=== PATIENT | male | born 1935 | race Caucasian/White ===

== ENCOUNTER 2022-12-13 12:18 | Outpatient (REF) | payer MEDICARE, OTHER, SELFPAY ==
[2022-12-13 12:50] LABS: Alanine Aminotransferase 17 U/L (0-40); Alkaline Phosphatase 86 U/L (39-117); Aspartate Amino Transferase 17 U/L (5-37); Bilirubin Direct 0.4 mg/dL (0.0-0.5); Bilirubin Total 2.3 mg/dL (0.0-1.0); Cholesterol 98 mg/dL; HDL Cholesterol 43 mg/dL; LDL Cholesterol Calculated 44 mg/dl; Total Protein 6.5 g/dL (6.5-8.0); Triglycerides 58 mg/dL
[2022-12-13 13:29] LABS: Reflex LDLD? No
== END 2022-12-13 12:19 | disposition home or self-care (01) ==
LOC: HO.LNP 12:18
PROVIDERS: Visit Provider Internal Medicine
DX: E78.00 Pure hypercholesterolemia, unspecified (principal)
CPT/HCPCS: 80061; 80076

== ENCOUNTER 2023-03-03 09:14 | Emergency (ER) | payer MEDICARE, OTHER, SELFPAY ==
--- NOTE | ~2023-03-03 | XR_ITS ---
EXAMINATION: XR ANKLE, RIGHT CLINICAL INFORMATION: Injury COMPARISON: Previous x-ray December 1999 TECHNIQUE: AP, lateral, and mortise views of the right ankle. FINDINGS: There are 2 screws in the medial malleolus and plate and 7 screws in the distal fibular shaft. Orthopedic hardware appears intact and unchanged. Bone alignment is normal. No acute fracture or dislocation. Small osteophytes at the tibiotalar joint. The ankle mortise is otherwise normal. Small calcaneal spurs. Mild degenerative changes of the foot. Diffuse soft tissue swelling. XR/XR ankle RT min 3V IMPRESSION: Stable appearance of orthopedic hardware. No acute fracture or dislocation.
[2023-03-03 09:17] VITALS: BP 129/76; PULSE 78; RESP 18; TEMP 36.5; O2SAT 98; BMI 26.3
--- NOTE | 2023-03-03 09:42 | PC.NURSE ---
Pt reporting he got off the couch this morning, his foot was asleep and he rolled his ankle, he is concerned as he has multiple skrews/plates in this ankle from previous injury 25 years ago. Right foot noted to have slight swelling, awaiting xray results at this time
--- NOTE | 2023-03-03 09:58 | ED_ITS ---
HPI - Extremity Injury (Lower) General Chief Complaint: Extremity Injury, Lower Stated Complaint: R ankle inj Time Seen by Provider: 03/03/23 09:37 Source: patient, family and RN notes reviewed Mode of arrival: ambulatory Limitations: no limitations History of Present Illness HPI Narrative: 87-year-old male is here today for right ankle pain. Patient reports that yesterday about 02:00 o'clock in the afternoon he was getting up and as he stood up, felt like his right foot was asleep and his leg gave out. Patient felt like his ankle twisted. Reports that he had surgery over 20 years ago to this ankle where he had multiple screws and pins placed. MD complaint: ankle injury Onset (ago): day(s) Related Data Home Medications Medication Instructions Recorded Confirmed atorvastatin 40 mg tablet 40 mg PO BEDTIME 07/13/20 07/02/22 omeprazole 20 mg capsule,delayed 1 cap PO DAILY 03/08/21 07/02/22 release Osteo Bi-Flex 1 tab PO DAILY 06/13/21 07/02/22 vit C 250 mg-vit E 90 mg-zinc 40 1 tab PO BID 06/13/21 07/02/22 mg-copper 1 [id number] capsule (PreserVision AREDS-2) Previous Rx's Medication Instructions Recorded acetaminophen 500 mg tablet 1,000 mg (2 x 500 mg) PO QID PRN 08/26/21 (Tylenol Extra Strength) fever or pain #14 tabs levofloxacin 750 mg tablet 750 mg PO DAILY uti 5 days #5 tabs 08/26/21 apixaban 5 mg tablet (Eliquis) 5 mg PO BID #180 tabs 04/11/22 metoprolol succinate 25 mg 25 mg PO DAILY #90 tabs 07/06/22 tablet,extended release 24 hr acetaminophen 325 mg capsule 650 mg (2 x 325 mg) PO Q6H PRN 03/03/23 pain #20 caps Allergies Allergy/AdvReac Type Severity Reaction Status Date / Time No Known Allergies Allergy Unknown Verified 03/03/23 09:17 Review of Systems Constitutional: Constitutional: Denies weight gain and Denies weight loss ENT: Reports system reviewed and no additional complaints, except as documented Cardiovascular: Cardiovascular: Reports no additional cardiovascular complaints Respiratory: Respiratory: Reports no additional respiratory complaints Gastrointestinal: Gastrointestinal: Reports no additional gastrointestinal complaints Genitourinary: Genitourinary: Reports no additional male genitourinary complaints Musculoskeletal: Musculoskeletal: Reports arthralgias (R Ankle) Integumentary/Breasts: Skin/Breast: Reports system reviewed and no additional complaints, except as docu Neurologic: Reports system reviewed and no additional complaints, except as documented [facility] Past Medical History Medical History Arthritis Chest pain Cholelithiasis GERD (gastroesophageal reflux disease) HLD (hyperlipidemia) Low back pain Neurofibroma On anticoagulant therapy On beta [place] at home PAF (paroxysmal atrial fibrillation) Renal cyst, right Right inguinal hernia Right inguinal pain Surgical History History of ankle surgery History of esophagogastroduodenoscopy (EGD) History of right inguinal hernia repair Hx of cataract extraction Hx of eye surgery Family History Family History Mother Stroke CVD (cardiovascular disease) Father No problems noted. Social History Social History Are you a primary critical care nurse practitioner to a significant other at home: No Do you presently have visiting nurse or other home services: No Alcohol intake: never Patient Tobacco Use Status: Former Tobacco user Quit Date: many years ago Tobacco use type: Cigarette Years Smoked: 20+ Second Hand Smoke Exposure: No Advance Directives: No Advance Directives Information Provided: No Current occupational status: retired Current occupation: rt hand Physical Exam Vital Signs: Vital Signs: Last Vital Signs Temp 97.7 F 03/03/23 09:17 Pulse 78 03/03/23 09:17 Resp 18 03/03/23 09:17 BP 129/76 03/03/23 09:17 Pulse Ox 98 03/03/23 09:17 O2 Del Method Room Air 03/03/23 09:17 BMI result Body Mass Index 26.3 Const: General: healthy appearing, no acute distress and well developed Nutritional Appearance: well nourished Orientation/consciousness: patient oriented x3 HEENT: Head: Yes normal to inspection, Yes normocephalic and Yes atraumatic Face and sinus: Yes normal facial exam Mouth: Normal oral and palatal mucosa present Throat: Yes posterior oropharynx normal, Yes tonsils normal and Yes uvula midline Eyes: General: appearance normal, both eyes and all related structures Neck: Neck: Yes normal visual inspection, Yes full ROM and Yes trachea midline Thyroid: Thyroid normal Resp: Effort & Inspection: normal respiratory effort, able to speak in complete sentences, no tracheal deviation and symmetric chest movement Auscultation: clear to auscultation bilaterally Skin: General skin exam: elasticity normal, turgor normal and dry skin Neuro: General: patient oriented x3 Extrem: General: Yes normal to inspection, Yes capillary refill normal and Yes no pedal edema Right lower extremity: normal capillary refill and ankle; no cyanosis and no edema Psych: Appearance: grossly normal Mental Status: mental status grossly normal Speech and movement: Normal speech and movement present Affect: normal affect Attitude: cooperative Thought process: Normal thought process present Thought content: Normal thought content present Insight: Good insight present (Psych) Judgement: Good judgement present (Psych) Course Course Course Narrative: 87-year-old male is here today for right ankle pain. Patient reports that yesterday about 02:00 o'clock in the afternoon he was getting up and as he stood up, felt like his right foot was asleep and his leg gave out. Patient felt like his ankle twisted. Reports that he had surgery over 20 years ago to this ankle where he had multiple screws and pins placed. Patient has good pedal pulses. No visible swelling. Will review x-ray. Official report pending. Reevaluation(s) Reevaluation #1: Official report shows no acute processes. Patient will follow-up with PCP. If patient will continue have pain he can follow-up with orthopedic surgeons. Patient was instructed to elevate his foot, ice. May take Tylenol for pain Medical Decision Making Independent Interpretation I performed an independent interpretation of an: Plain X-Ray Radiology Impression Discussion of test interpretation with radiology: I have reviewed the radiologist's reading. Radiologist Impression: FINDINGS: There are 2 screws in the medial malleolus and plate and 7 screws in the distal fibular shaft. Orthopedic hardware appears intact and unchanged. Bone alignment is normal. No acute fracture or dislocation. Small osteophytes at the tibiotalar joint. The ankle mortise is otherwise normal. Small calcaneal spurs. Mild degenerative changes of the foot. Diffuse soft tissue swelling. XR/XR ankle RT min 3V IMPRESSION: Stable appearance of orthopedic hardware. No acute fracture or dislocation. Discharge Plan Discharge Clinical Impression: Ankle sprain and strain Patient Disposition: Home, Self-Care Instructions: Ankle Sprain (ED) Additional Instructions: Your right ankle has no fracture, please follow-up with your primary care doctor. You might need another x-ray if you will continue to have pain or swelling. keep your right leg elevated. Apply ice few times a day. You may take Tylenol for pain. Prescriptions: New acetaminophen 325 mg capsule 650 mg PO Q6H PRN (Reason: pain) Qty: 20 0RF No Action Eliquis 5 mg tablet 5 mg PO BID Qty: 180 3RF metoprolol succinate 25 mg tablet extended release 24 hr 25 mg PO DAILY Qty: 90 3RF omeprazole 20 mg capsule,delayed release(DR/EC) 1 cap PO DAILY PreserVision AREDS-2 250-90-40-1 mg Capsule 1 tab PO BID Osteo Bi-Flex 1 tab PO DAILY levofloxacin 750 mg tablet 750 mg PO DAILY 5 Days Qty: 5 0RF acetaminophen [Tylenol Extra Strength] 500 mg tablet 1,000 mg PO QID PRN (Reason: fever or pain) Qty: 14 0RF atorvastatin 40 mg tablet 40 mg PO BEDTIME Referrals: Sean Villar MD [Primary Care Provider] - Interventions: ED Discharge Assessment Last Done: 03/03/23 10:28 Discharge Date/Time: 03/03/23 10:29
== END 2023-03-03 10:29 | disposition home or self-care (01) ==
PROVIDERS: Emergency Provider Emergency Medicine; PCP Internal Medicine
DX: S93.401A Sprain of unspecified ligament of right ankle, initial encounter (principal); X58.XXXA Exposure to other specified factors, initial encounter; Y93.9 Activity, unspecified; Y92.9 Unspecified place or not applicable; Y99.9 Unspecified external cause status; M25.571 Pain in right ankle and joints of right foot
CPT/HCPCS: 73610; 99283; 99284

== ENCOUNTER 2023-03-11 13:50 | Outpatient (AMB) | payer MEDICARE, OTHER, SELFPAY ==
--- NOTE | 2023-03-11 14:15 | A.OFFVIS_ITS ---
Intake Vital Signs 03/11/23 14:32 Height 5 ft 9 in Weight 178 lb BMI 26.3 Intake Visit Reasons: FC-RT Ankle Sprain Intake Note: Wilder an 87 year old male presents today for an ER follow up right ankle injury, DOI 03/02/23. Patient reports when he was getting up from a sitting position not noticing his foot feel asleep his leg gave out. He presented to [facility] ED the following day due to pain and swelling. Currently he continues to have constant pain and a tingling sensation in his toes. Finds very little to no relief with Tylenol. Hx of right ankle surgery about 20 years ago. Allergies No Known Allergies Allergy (Unknown, Verified 03/11/23 14:32) HPI FC-RT Ankle Sprain HPI Details 87-year-old male who presents to the off [facility] today for evaluation of for an ER follow-up of right ankle injury s/p getting up from a sitting position without noticing his foot gave out, 03/02/23. He was seen at ED the next day for his pain and swelling. He currently states he has pain in his ankle as well as tingling sensation in his toes. He finds minimal relief with Tylenol. He has a history of right ankle surgery about 20 years ago. [facility] Medical History Arthritis Chest pain Cholelithiasis GERD (gastroesophageal reflux disease) HLD (hyperlipidemia) Low back pain Neurofibroma On anticoagulant therapy On beta [place] at home PAF (paroxysmal atrial fibrillation) Renal cyst, right Right inguinal hernia Right inguinal pain Surgical History History of esophagogastroduodenoscopy (EGD) History of right inguinal hernia repair Hx of eye surgery Hx of cataract extraction History of ankle surgery Family History Mother Stroke CVD (cardiovascular disease) Father No problems noted. Social History Are you a primary progressive care nurse to a significant other at home: No Do you presently have visiting nurse or other home services: No Alcohol intake: never Patient Tobacco Use Status: Former Tobacco user Quit Date: many years ago Tobacco use type: Cigarette Years Smoked: 20+ Second Hand Smoke Exposure: No Current occupational status: retired Current occupation: rt hand Review of Systems Const All systems reviewed & are unremarkable except as noted in HPI and below Physical Exam Vital Signs: BMI result Body Mass Index 26.3 Extrem Other: Right ankle: Normal to inspection with diffuse swelling over the medial and lateral malleolus with tenderness along the soft tissues. No discomfort along the posterior aspect of the ankle, no deformity along the Achilles tendon, negative Norman?s. No pain along the syndesmosis or anterior tibia. No laxity, NVI. Results Reviewed Results Reviewed: xrays of the right ankle obtained on 03/03/23 show intact orthopedic hardware, no evidence of new fractures. Ankle mortise intact. Assessment & Plan Assessment & Plan (1) Right ankle sprain: Code(s): S93.401A - Sprain of unspecified ligament of right ankle, initial encounter Qualifiers: Encounter type: initial encounter Involved ligament of ankle: anterior talofibular ligament Qualified Code(s): S93.491A - Sprain of other ligament of right ankle, initial encounter Plan We discussed options which include walking boot which he is familiar with and would like to defer at this time as it feels uncomfortable for him and he experiences difficult to walk in. He was fit for a lace-up ankle brace weight bearing as tolerated. I did stress the importance of elevation to allow for swelling control and also work on ankle pumps to get the circulation going. I would like to see him back in 4-6 weeks for a follow-up. Patient Instructions: Scribed for Christina Hurst PA-C, by Jorge Swartz medical equipment sales, on 03/11/2023 at 2:15 PM EST. Christina Boggs PA-C, have personally reviewed and agree with the information entered by the scribe. Coding Level of Care Code Est Pt Level 3 (08394) Diagnoses Sprain of anterior talofibular ligament of right ankle, initial encounter S93.491A Encounter type: initial encounter Involved ligament of ankle: anterior talofibular ligament
[2023-03-11 14:32] VITALS: BMI 26.3
== END 2023-03-11 15:41 | disposition home or self-care (01) ==
PROVIDERS: PCP Internal Medicine; Visit Provider Physician Assistant
DX: S93.491A Sprain of other ligament of right ankle, initial encounter (principal)
CPT/HCPCS: 99213

== ENCOUNTER → 2023-03-11 13:50 | Outpatient (BNVA) | payer MEDICARE, OTHER, SELFPAY | PROVIDERS: PCP Internal Medicine; Visit Provider Physician Assistant | DX: S93.491A Sprain of other ligament of right ankle, initial encounter (principal) | CPT/HCPCS: 99212 ==

== ENCOUNTER 2023-04-26 11:30 | Outpatient (AMB) | payer MEDICARE, OTHER, SELFPAY ==
--- NOTE | 2023-04-26 11:35 | A.OFFVIS_ITS ---
Intake Intake Visit Reasons: OV- RT Ankle Sprain Intake Note: Wilder an 87 year old male presents today for a follow up right ankle injury, DOI 03/02/23. Patient reports he is doing well, states some soreness at the lateral aspect of ankle. Allergies No Known Allergies Allergy (Unknown, Verified 04/26/23 11:39) HPI OV- RT Ankle Sprain HPI Details 87-year-old male who returns to the [facility] today for a follow-up of right ankle injury, 03/02/23. He continues to have mild soreness at the lateral aspect of his ankle but is doing well overall. [facility] Medical History Arthritis Chest pain Cholelithiasis GERD (gastroesophageal reflux disease) HLD (hyperlipidemia) Low back pain Neurofibroma On anticoagulant therapy On beta [place] at home PAF (paroxysmal atrial fibrillation) Renal cyst, right Right inguinal hernia Right inguinal pain Surgical History History of esophagogastroduodenoscopy (EGD) History of right inguinal hernia repair Hx of eye surgery Hx of cataract extraction History of ankle surgery Family History Mother Stroke CVD (cardiovascular disease) Father No problems noted. Social History Are you a primary healthcare facility administrator to a significant other at home: No Do you presently have visiting nurse or other home services: No Alcohol intake: never Patient Tobacco Use Status: Former Tobacco user Quit Date: many years ago Tobacco use type: Cigarette Years Smoked: 20+ Second Hand Smoke Exposure: No Current occupational status: retired Current occupation: rt hand Review of Systems Const All systems reviewed & are unremarkable except as noted in HPI and below Physical Exam Extrem Other: Right ankle: Normal to inspection with no swelling over the medial and lateral malleolus with no tenderness along the soft tissues. No discomfort along the posterior aspect of the ankle, no deformity along the Achilles tendon, negative Norman?s. No pain along the syndesmosis or anterior tibia. No laxity, NVI. Assessment & Plan Assessment & Plan (1) Right ankle sprain: Code(s): S93.401A - Sprain of unspecified ligament of right ankle, initial encounter Qualifiers: Encounter type: subsequent encounter Involved ligament of ankle: anterior talofibular ligament Qualified Code(s): S93.491D - Sprain of other ligament of right ankle, subsequent encounter Plan He will increase activity as tolerated. We did briefly discuss the benefits of physical therapy which he declined at this time. If symptoms persist or worsens, patient will contact the office, otherwise follow-up as needed. Patient Instructions: Scribed for Christina Hurst PA-C, by Jorge Swartz front office medical assistant, on 04/26/2023 at 12:30 PM EST. I, Christina Hurst PA-C, have personally reviewed and agree with the information entered by the scribe. Coding Level of Care Code Est Pt Level 3 (61122) Diagnoses Sprain of anterior talofibular ligament of right ankle, subsequent encounter S93.491D Encounter type: subsequent encounter Involved ligament of ankle: anterior talofibular ligament
== END 2023-04-26 12:15 | disposition home or self-care (01) ==
PROVIDERS: PCP Internal Medicine; Visit Provider Physician Assistant
DX: S93.491D Sprain of other ligament of right ankle, subsequent encounter (principal)
CPT/HCPCS: 99213

== ENCOUNTER → 2023-04-26 11:30 | Outpatient (BNVA) | payer MEDICARE, OTHER, SELFPAY | PROVIDERS: PCP Internal Medicine; Visit Provider Physician Assistant | DX: S93.491D Sprain of other ligament of right ankle, subsequent encounter (principal) | CPT/HCPCS: 99212 ==

== ENCOUNTER 2023-06-18 07:31 | Outpatient (REF) | payer MEDICARE, OTHER, SELFPAY ==
[2023-06-18 10:51] LABS: MANUAL DIFF FLAG NO
[2023-06-18 10:54] LABS: Appearance Urine Clear; Color Urine Dark Yellow; Glucose Urine UA Negative (Negative); Leukocyte Esterase Urine Small (1+) (Negative); Nitrite Urine Negative (Negative); PH 5.5 (5.0-9.0); Specific Gravity - Urine >= 1.030 (1.005-1.025); UMIC TRIGGER UACC YES; Urine Blood Negative (Negative); Urine Ketones Negative (Negative); Urine Protein Negative (Neg-Trace)
[2023-06-18 11:01] LABS: Basophils Absolute Auto 0.1 X10*3/uL (0.0-0.2); Eosinophils Absolute Auto 0.2 X10*3/uL (0.0-0.4); Eosinophils Percent Auto 4.4 % (0-4); Hematocrit 43.1 % (42.0-52.0); Hemoglobin 14.1 g/dl (14.0-18.0); Imm Gran Abs Auto 0.02 X10*3/uL (0.00-0.03); Imm Gran Pct Auto 0.4 % (0.0-0.4); Lymphocytes Percent Auto 21.1 % (20-40); Mean Corpuscular HGB Conc 32.7 g/dl (31.0-36.0); Mean Corpuscular Hemoglobin 31.8 pg (27.0-33.0); Mean Corpuscular Volume 97.1 fL (80.0-98.0); Mean Platelet Volume 10.2 fL (9.4-12.4); Monocytes Absolute Auto 0.5 X10*3/uL (0.1-1.2); Monocytes Percent Auto 11.3 % (2-11); Neutrophils Percent Auto 61.8 % (45-73); Platelet Count 156 X10*3/uL (160-400); Red Blood Count 4.44 X10*6/uL (4.60-5.80); Red Cell Distribution Width 14.6 % (11.0-16.0); White Blood Count 4.8 X10*3/uL (4.8-10.8)
[2023-06-18 11:10] LABS: Bacteria Urine None Seen (None Seen); Hyaline Casts Urine 0-2 /LPF (0-2); RBC Urine 0-2 /HPF (0-2); Squamous Epithelial Cell Urine 0-2 /HPF (0-2); UACC Culture Trigger YES; WBC Urine 0-5 /HPF (0-5)
[2023-06-18 11:15] LABS: Alanine Aminotransferase 17 U/L (0-40); Albumin Level 4.1 g/dL (3.5-5.0); Alkaline Phosphatase 104 U/L (39-117); Anion Gap 13 (12-20); Aspartate Amino Transferase 16 U/L (5-37); Blood Urea Nitrogen 22 mg/dL (9-16); Calcium 9.7 mg/dL (8.4-10.2); Carbon Dioxide 27 mmol/L (22-29); Chloride 106 mmol/L (96-108); Cholesterol 107 mg/dL (<200); Estimated Glomerular Filt Rate > 60; Glucose Fasting 92 mg/dL (60-99); HDL Cholesterol 38 mg/dL (>40); LDL Cholesterol Calculated 55 mg/dL (<100); Potassium 4.3 mmol/L (3.3-5.1); Sodium 142 mmol/L (135-145); Total Protein 6.5 g/dL (6.5-8.0); Triglycerides 74 mg/dL (<150)
[2023-06-18 11:28] LABS: PSA,Total (Free>4and<10) 0.72 ng/mL (0.00-4.00)
[2023-06-18 11:33] LABS: Vitamin D 25-OH Total 35.4 ng/mL (>30)
== END 2023-06-18 07:32 | disposition home or self-care (01) ==
LOC: HO.10HDL 07:31
PROVIDERS: Visit Provider Internal Medicine
DX: E55.9 Vitamin D deficiency, unspecified (principal); D69.6 Thrombocytopenia, unspecified; E78.00 Pure hypercholesterolemia, unspecified; Z12.5 Encounter for screening for malignant neoplasm of prostate; R82.90 Unspecified abnormal findings in urine
CPT/HCPCS: 36415; 80053; 80061; 81001; 82306; 84153; 85025; 87086

== ENCOUNTER 2023-09-25 11:52 | Outpatient (AMB) | payer MEDICARE, OTHER, SELFPAY ==
--- NOTE | 2023-09-25 12:33 | A.OFFVIS_ITS ---
Vital Signs 09/25/23 12:34 Height 5 ft 9 in Weight 173 lb 11.588 oz BMI 25.7 BP 130/70 Blood Pressure Location Lt brachial Position Sitting Pulse 77 Intake Visit Reasons: 1 yr f/up [employer] Required: No Accompanied by: Spouse Allergies No Known Allergies Allergy (Unknown, Verified 04/26/23 11:39) Medication List - Last Reconciled 09/25/23 by Alex Barnes MD acetaminophen (Tylenol Extra Strength) 1,000 mg (2 x 500 mg) PO QID PRN acetaminophen 650 mg (2 x 325 mg) PO Q6H PRN apixaban (Eliquis) 5 mg PO BID atorvastatin 40 mg PO BEDTIME metoprolol succinate ER 25 mg PO DAILY omeprazole 1 cap PO DAILY [Osteo Bi-Flex 1 tab PO DAILY] vit C,M-Ly-goplk-lutein-zeaxan 250-90-40-1 mg (PreserVision AREDS-2) 1 tab PO BID HPI Comments Details: 88-year-old gentleman here for follow-u. He went to see his primary care physician where EKG confirmed atrial fibrillation. He was started on Eliquis. He is saying he has no new symptoms. He denies shortness of breath, peripheral edema or palpitations. He previously had some dyspnea which was thought to be secondary to deconditioning. He has stress testing and ECHO in the past. He was sent for Holter monitoring which showed a good rate control Toprol XL 25 mg once a day. He also had echocardiography which showed normal biventricular function, mild biatrial enlargement and no significant valvular pathology. He returns for follow-up and is feeling good. Denies any shortness of breath. No bleeding issues. Has been taking Eliquis and metoprolol. Clinically stable at this stage. 09/25/23: He is here for follow-up. He is in atrial fibrillation with heart rate 77 beats per minute. Last EKG from 2022 also showed atrial fibrillation with good rate controlled. He is taking apixaban for anticoagulation. He gets dyspnea when he goes upstairs but otherwise on plain surface he does not have any symptoms. There is no change in his breathing status. [facility] Medical History (Updated 09/25/23 @ 12:57 by Alex Barnes MD) Right inguinal pain On beta az[place] at home On anticoagulant therapy Arthritis Low back pain Cholelithiasis Renal cyst, right Neurofibroma Right inguinal hernia GERD (gastroesophageal reflux disease) HLD (hyperlipidemia) Chest pain PAF (paroxysmal atrial fibrillation) Surgical History History of esophagogastroduodenoscopy (EGD) History of right inguinal hernia repair Hx of eye surgery Hx of cataract extraction History of ankle surgery Family History Mother Stroke CVD (cardiovascular disease) Father No problems noted. Social History Are you a primary care services manager to a significant other at home: No Do you presently have visiting nurse or other home services: No Alcohol intake: never Patient Tobacco Use Status: Former Tobacco user Quit Date: many years ago Tobacco use type: Cigarette Years Smoked: 20+ Second Hand Smoke Exposure: No Current occupational status: retired Current occupation: rt hand Review of Systems Const Denies chills, Denies fatigue, Denies fever(s), Denies frequent falls, Denies weakness, Denies weight gain and Denies weight loss ENT Denies dizziness Card Denies chest pain, Denies leg edema, Denies lightheadedness, Denies palpitations, Denies dyspnea and Denies dyspnea on exertion Resp Denies cough, Denies dyspnea and Denies dyspnea on exertion GI Denies hematochezia Musc Denies abnormal gait, Denies muscle weakness, Denies numbness, Denies radiating pain into limb and Denies tingling Neuro Denies abnormal gait, Denies dizziness, Denies frequent falls, Denies numbness, Denies tingling and Denies weakness Endo Denies fatigue and Denies palpitations Physical Exam Vital Signs: Last Vital Signs Pulse 77 09/25/23 12:34 BP 130/70 09/25/23 12:34 BMI result Body Mass Index 25.7 GENERAL APPEARANCE: in no acute distress, well developed, well nourished. NECK/THYROID: no carotid bruit, no jugular venous distention. SKIN: Neurofibromatosis. HEART: no murmurs, irregular rate and rhythm, S1, S2 normal. LUNGS: clear to auscultation bilaterally. ABDOMEN: normal, bowel sounds present, soft, nontender, nondistended. EXTREMITIES: no clubbing, cyanosis, or edema. PERIPHERAL PULSES: equal. NEUROLOGIC: nonfocal, alert and oriented. PSYCH: mood/affect full range. Assessment & Plan Assessment & Plan (1) Permanent atrial fibrillation: Code(s): I48.21 - Permanent atrial fibrillation Category: Medical Plan Pleasant 88 year gentleman who is here for follow-up. He has permanent atrial fibrillation. He is rate controlled with metoprolol succinate 25 mg daily and is on anticoagulation with apixaban. Last echocardiography was in 2020. Given the fact that he is in AFib all the time, I think we should repeat echocardiography to reassess ejection fraction as cardiomyopathy can develop in some patients due to poor rate control. Overall clinically stable. He will see us back in 1 year. Thank you for allowing me to participate in the care of your patient. Please feel free to contact me if you have any questions. Orders: Orders CA echo transthoracic complete Today I48.21 - Permanent atrial fibrillation Coding Level of Care Code Est Pt Level 4 (63235) Diagnoses Permanent atrial fibrillation I48.21
[2023-09-25 12:34] VITALS: BP 130/70; PULSE 77; BMI 25.7
== END 2023-09-25 12:59 | disposition home or self-care (01) ==
PROVIDERS: PCP Internal Medicine; Visit Provider Internal Medicine Cardiovascular Disease
DX: I48.21 Permanent atrial fibrillation (principal)
CPT/HCPCS: 93010; 99214

== ENCOUNTER → 2023-09-25 11:52 | Outpatient (BNVA) | payer MEDICARE, OTHER, SELFPAY | PROVIDERS: PCP Internal Medicine; Visit Provider Internal Medicine Cardiovascular Disease | DX: I48.21 Permanent atrial fibrillation (principal) | CPT/HCPCS: 93005; 99212 ==

== ENCOUNTER → 2023-10-17 09:33 | Outpatient (REF) | payer MEDICARE, OTHER, SELFPAY ==
--- NOTE | 2023-10-17 09:36 | CA_ITS ---
Transthoracic Echocardiogram Patient (Last, First, Middle): Wilder Ziegler H Gender: Male Date of : 1935 Age: 88 Procedure Date: 10/17/2023 Procedure Type: Transthoracic Echocardiogram Location: OP Height: 175.26 cm Weight: 80.74 kg BSA: 1.97 m2 Heart Rate: 59 bpm BP: 110 / 70 mmHg Varnish Inspector: JOSEPHINE Hoffman MD: Alex Barnes MD Furnace Mechanic: Alex Barnes MD Symptoms: I48.21 - Permanent atrial fibrillation Study Quality: Adequate ECG Rhythm: Atrial Fibrillation Conclusions: - Normal left ventricular size and systolic function. There is moderately increased left ventricular wall thickness. The visually estimated ejection fraction is between 55-60%. - Mildly increased right ventricular cavity size. There is mild to moderately decreased right ventricular systolic function. - There is moderate to severe tricuspid valve regurgitation. Moderately elevated right atrial pressure. There is no evidence of pulmonary hypertension. Findings Left Ventricle Normal left ventricular size and systolic function. There is moderately increased left ventricular wall thickness. The visually estimated ejection fraction is between 55-60%. There is no evidence of regional wall motion abnormalities. Diastolic function is indeterminate on the basis of available data. Right Ventricle Mildly increased right ventricular cavity size. There is mild to moderately decreased right ventricular systolic function. Atria The left atrium is severely dilated. The right atrium is severely dilated. Aortic Valve Normal aortic valve structure and function. There is no aortic valve stenosis. There is trace (trivial) aortic valve regurgitation. Mitral Valve Normal mitral valve structure and function. There is trace mitral valve regurgitation. There is no mitral valve stenosis. Pulmonic Valve Normal pulmonic valve structure and function. There is trace pulmonic valve regurgitation. Tricuspid Valve Normal tricuspid valve structure. There is moderate to severe tricuspid valve regurgitation. Moderately elevated right atrial pressure. There is no evidence of pulmonary hypertension. Venous The inferior vena cava is dilated and collapses greater than 50% with inspiration. Pericardium/Pleural There is no evidence of pericardial effusion. Prior Study Comparison Changes noted compared to prior study dated: 08/23/2020. Severe biatrial enlargement. Mild to mod RV dysfunction. Mod to severe TR. Measurements 2D Linear Measurements IVSd: 1.44 0.6-0.9/0.6-1.0 cm LVIDd: 4.26 3.9-5.3/4.2-5.9 cm LVIDd Index: 2.16 2.4-3.2/2.2-3.1 cm/m2 LVIDs: 3.18 2.0-3.6 cm LVPWd: 1.29 0.7-1.1 cm LA Diam: 4.70 2.7-3.8/3.0-4.0 cm LAIDs Index: 2.39 1.5-2.3 cm/m2 LV Mass: 274.79 67-162/88-224 g LV Mass Index: 139.49 43-95/49-115 g/m2 LVOT Diam: 2.30 3.0+(-)1.3 cm 2D Systolic Function EF 4C: 59.80 >55% EF 2C: 52.40 >55% EF BiP: 56.00 >55% Mitral Valve MV Pk E: 0.79 MV Decel Time: 188.00 E'Lateral: 10.80 E'Medial: 8.49 E/E' Med: 9.30 E/E' Lat: 7.30 PHT: 55.00 MVA PHT: 4.00 Decel [place]: 4.21 Aortic Valve AoV Pk [place]: 1.06 AoV Mn [place]: 0.77 AoV VTI: 0.21 AoV Pk Grad: 4.00 Aov Mn Grad: 3.00 G[place] Cont.VTI: 2.23 LVOT LVOT Pk [place]: 0.57 LVOT Mn [place]: 0.42 LVOT VTI: 0.11 LVOT Pk Grad: 1.00 LVOT Mn Grad: 1.00 LVOT Diam: 2.30 LVOT Area: 4.15 Diastolic Function MV Pk E: 0.79 E'Medial: 8.49 E/E' Med: 9.30 E' Laterial: 10.80 E/E' Lat: 7.30 Right Ventricle TAPSE (mm): 14.90 TVS' [place]: 8.56 Tricuspid Valve TR Pk [place]: 2.41 TR Pk Grad: 23.00 RA Press: 8.00 RVSP: 31.00 Great Vessels Aorta Sinus of Valsalva: 4.00 2.0-3.5 cm Ao Asc: 3.70 2.1-3.4 cm Pulmonary Valve PV Pk [place]: 0.84 Peak PV Grad: 3.00 Updated in Other Vendor System with Status of Final Alex Barnes MD electronically signed on 10/17/2023 6:05:42 PM with status of Final
== END ==
LOC: HO.CARD 09:33
PROVIDERS: PCP Internal Medicine; Visit Provider Internal Medicine Cardiovascular Disease
DX: I48.21 Permanent atrial fibrillation (principal)
CPT/HCPCS: 93306

== ENCOUNTER → 2023-10-17 09:36 | Outpatient (BNV) | payer MEDICARE, OTHER, SELFPAY | PROVIDERS: PCP Internal Medicine; Visit Provider Internal Medicine Cardiovascular Disease | DX: I36.1 Nonrheumatic tricuspid (valve) insufficiency (principal) | CPT/HCPCS: 93306 ==

== ENCOUNTER 2023-12-02 12:18 | Outpatient (AMB) | payer MEDICARE, OTHER, SELFPAY ==
[2023-12-02 12:44] VITALS: BP 120/62; PULSE 67; BMI 25.2
--- NOTE | 2023-12-02 12:44 | MHC.OFFVIS ---
Vital Signs 12/02/23 12:44 Height 5 ft 9 in Weight 170 lb 10.205 oz BMI 25.2 BP 120/62 Blood Pressure Location Rt brachial Position Sitting Pulse 67 Pulse Source Pulse Oximeter Intake Visit Reasons: f/up echo/plan Intake Note: f/up echo Dictating Machine Mechanic Required: No Accompanied by: Self / Same As Patient Allergies No Known Allergies Allergy (Unknown, Verified 04/26/23 11:39) Medication List - Last Reconciled 12/02/23 by Alex Barnes MD acetaminophen (Tylenol Extra Strength) 1,000 mg (2 x 500 mg) PO QID PRN acetaminophen 650 mg (2 x 325 mg) PO Q6H PRN apixaban (Eliquis) 5 mg PO BID atorvastatin 40 mg PO BEDTIME metoprolol succinate ER 25 mg PO DAILY omeprazole 1 cap PO DAILY [Osteo Bi-Flex 1 tab PO DAILY] vit C,T-Jk-kavix-lutein-zeaxan 250-90-40-1 mg (PreserVision AREDS-2) 1 tab PO BID HPI Comments Details: 88-year-old gentleman here for follow-u. He went to see his primary care physician where EKG confirmed atrial fibrillation. He was started on Eliquis. He is saying he has no new symptoms. He denies shortness of breath, peripheral edema or palpitations. He previously had some dyspnea which was thought to be secondary to deconditioning. He has stress testing and ECHO in the past. He was sent for Holter monitoring which showed a good rate control Toprol XL 25 mg once a day. He also had echocardiography which showed normal biventricular function, mild biatrial enlargement and no significant valvular pathology. He returns for follow-up and is feeling good. Denies any shortness of breath. No bleeding issues. Has been taking Eliquis and metoprolol. Clinically stable at this stage. 09/25/23: He is here for follow-up. He is in atrial fibrillation with heart rate 77 beats per minute. Last EKG from 2022 also showed atrial fibrillation with good rate controlled. He is taking apixaban for anticoagulation. He gets dyspnea when he goes upstairs but otherwise on plain surface he does not have any symptoms. There is no change in his breathing status. 12/02/2023: He returns for follow-up. He underwent echocardiography in 10/17/2023 which showed normal LV function of 55-60%, mildly increased right ventricular cavity size with uwfl-jf-otqdlxil RV dysfunction, moderate severe tricuspid valve regurgitation and a moderately elevated right atrial pressure. Normal PA pressures were noted. Severe biatrial enlargement was noted. He is denying any significant change in his symptoms on follow-up. No chest discomfort. No peripheral edema or abdominal distention/signs of right heart failure. [facility] Medical History (Updated 12/02/23 @ 13:23 by Alex Barnes MD) Right inguinal pain On beta azalia at home On anticoagulant therapy Arthritis Low back pain Cholelithiasis Renal cyst, right Neurofibroma Right inguinal hernia GERD (gastroesophageal reflux disease) HLD (hyperlipidemia) Chest pain PAF (paroxysmal atrial fibrillation) Surgical History History of esophagogastroduodenoscopy (EGD) History of right inguinal hernia repair Hx of eye surgery Hx of cataract extraction History of ankle surgery Family History Mother Stroke CVD (cardiovascular disease) Father No problems noted. Social History Are you a primary adult live in caregiver to a significant other at home: No Do you presently have visiting nurse or other home services: No Alcohol intake: never Patient Tobacco Use Status: Former Tobacco user Tobacco use type: Cigarette Years Smoked: 20+ Second Hand Smoke Exposure: No Current occupational status: retired Current occupation: rt hand Review of Systems Const Denies chills, Denies fatigue, Denies fever(s), Denies frequent falls, Denies weakness, Denies weight gain and Denies weight loss ENT Denies dizziness Card Denies chest pain, Denies leg edema, Denies lightheadedness, Denies palpitations, Denies dyspnea and Denies dyspnea on exertion Resp Denies cough, Denies dyspnea and Denies dyspnea on exertion GI Denies hematochezia Musc Denies abnormal gait, Denies muscle weakness, Denies numbness, Denies radiating pain into limb and Denies tingling Neuro Denies abnormal gait, Denies dizziness, Denies frequent falls, Denies numbness, Denies tingling and Denies weakness Endo Denies fatigue and Denies palpitations Physical Exam Vital Signs: Last Vital Signs Pulse 67 12/02/23 12:44 BP 120/62 12/02/23 12:44 BMI result Body Mass Index 25.2 GENERAL APPEARANCE: in no acute distress, well developed, well nourished. NECK/THYROID: no carotid bruit, no jugular venous distention. SKIN: Neurofibroma. HEART: no murmurs, irregular rate and rhythm, S1, S2 normal. LUNGS: clear to auscultation bilaterally. ABDOMEN: normal, bowel sounds present, soft, nontender, nondistended. EXTREMITIES: no clubbing, cyanosis, or edema. PERIPHERAL PULSES: equal. NEUROLOGIC: nonfocal, alert and oriented. PSYCH: mood/affect full range. Assessment & Plan Assessment & Plan (1) Permanent atrial fibrillation: Code(s): I48.21 - Permanent atrial fibrillation Category: Medical (2) Right ventricular dysfunction: Code(s): I51.9 - Heart disease, unspecified Category: Medical Plan 88-year-old gentleman presenting for follow-up. He has known history of atrial fibrillation was previously treated as permanent atrial fibrillation because he had no symptoms. He underwent echocardiography recently which interestingly is showing eatk-rh-nduheevc RV dysfunction with oxivbrzf-hj-rtxirw tricuspid valve regurgitation. Right atrial pressure is severely elevated and no pulmonary hypertension was noted. He has severe biatrial enlargement which can be seen with amyloid in this age group but progressive tricuspid regurgitation due to dilation of atrial due to atrial fibrillation could be another etiology. He currently has no significant symptoms other than some fatigue and shortness of breath with activities which has been a chronic issue for him. Clinically not in heart failure. I have discussed with him that cardioversion can be attempted to see if we achieve sinus rhythm and maybe we could prevent further atrial dilatation and TR. I have explained to him that this is fairly theoretical currently. He wishes to discuss this with his family. We will bring him back in couple of months for follow-up. He will discuss with his family and if he made up his mind about cardioversion then he will reach out to us. I am stopping the metoprolol succinate and changing him to amiodarone 200 mg daily. In case he decides to go for cardioversion this will increase our success rate because he has been in AFib for long time. Thank you for allowing me to participate in the care of your patient. Please feel free to contact me if you have any questions. Medications: New amiodarone 200 mg PO DAILY 90 tabs 3RF Discontinued metoprolol succinate ER Discontinued Reason: Doctor's Order 25 mg PO DAILY 90 tabs 3RF I48.0 - Paroxysmal atrial fibrillation Coding Level of Care Code Est Pt Level 4 (78645) Diagnoses Permanent atrial fibrillation I48.21 Right ventricular dysfunction I51.9
== END 2023-12-02 13:14 | disposition home or self-care (01) ==
PROVIDERS: PCP Internal Medicine; Visit Provider Internal Medicine Cardiovascular Disease
DX: I48.21 Permanent atrial fibrillation (principal); I51.9 Heart disease, unspecified
CPT/HCPCS: 99214

== ENCOUNTER → 2023-12-02 12:18 | Outpatient (BNVA) | payer MEDICARE, OTHER, SELFPAY | PROVIDERS: PCP Internal Medicine; Visit Provider Internal Medicine Cardiovascular Disease | DX: I48.21 Permanent atrial fibrillation (principal); I48.0 Paroxysmal atrial fibrillation; I51.9 Heart disease, unspecified; Z79.01 Long term (current) use of anticoagulants; Z79.899 Other long term (current) drug therapy | CPT/HCPCS: 99212 ==

== ENCOUNTER 2023-12-16 10:36 | Outpatient (REF) | payer MEDICARE, OTHER, SELFPAY ==
[2023-12-16 11:16] LABS: Alanine Aminotransferase 14 U/L (0-40); Alkaline Phosphatase 91 U/L (39-117); Aspartate Amino Transferase 15 U/L (5-37); Bilirubin Direct 0.5 mg/dL (0.0-0.5); Bilirubin Total 2.3 mg/dL (0.0-1.0); Cholesterol 99 mg/dL (<200); HDL Cholesterol 48 mg/dL (>40); LDL Cholesterol Calculated 37 mg/dL (<100); Total Protein 6.3 g/dL (6.5-8.0); Triglycerides 72 mg/dL (<150)
== END 2023-12-16 10:37 | disposition home or self-care (01) ==
LOC: HO.LNP 10:36
PROVIDERS: Visit Provider Internal Medicine
DX: I48.91 Unspecified atrial fibrillation (principal)
CPT/HCPCS: 80061; 80076

== ENCOUNTER 2024-02-12 12:14 | Outpatient (AMB) | payer MEDICARE, OTHER, SELFPAY ==
[2024-02-12 12:45] VITALS: BP 130/60; PULSE 74; BMI 25.0
--- NOTE | 2024-02-12 12:45 | MHC.OFFVIS ---
Vital Signs 02/12/24 12:45 Height 5 ft 9 in Weight 169 lb 5.04 oz BMI 25.0 BP 130/60 Blood Pressure Location Lt brachial Position Sitting Pulse 74 Pulse Source Monitor Intake Visit Reasons: 2 mth f/up Intake Note: 2 mth f/up Quality Assurance Qa Lab Analyst Required: No Accompanied by: Spouse Allergies No Known Allergies Allergy (Unknown, Verified 04/26/23 11:39) Medication List - Last Reconciled 02/12/24 by Alex Barnes MD acetaminophen (Tylenol Extra Strength) 1,000 mg (2 x 500 mg) PO QID PRN acetaminophen 650 mg (2 x 325 mg) PO Q6H PRN amiodarone 200 mg PO DAILY apixaban (Eliquis) 5 mg PO BID atorvastatin 40 mg PO BEDTIME omeprazole 1 cap PO DAILY [Osteo Bi-Flex 1 tab PO DAILY] tamsulosin 0.8 mg PO DAILY vit C,L-Wo-hhayl-lutein-zeaxan 250-90-40-1 mg (PreserVision AREDS-2) 1 tab PO BID HPI Comments Details: 88-year-old gentleman here for follow-u. He went to see his primary care physician where EKG confirmed atrial fibrillation. He was started on Eliquis. He is saying he has no new symptoms. He denies shortness of breath, peripheral edema or palpitations. He previously had some dyspnea which was thought to be secondary to deconditioning. He has stress testing and ECHO in the past. He was sent for Holter monitoring which showed a good rate control Toprol XL 25 mg once a day. He also had echocardiography which showed normal biventricular function, mild biatrial enlargement and no significant valvular pathology. He returns for follow-up and is feeling good. Denies any shortness of breath. No bleeding issues. Has been taking Eliquis and metoprolol. Clinically stable at this stage. 09/25/23: He is here for follow-up. He is in atrial fibrillation with heart rate 77 beats per minute. Last EKG from 2022 also showed atrial fibrillation with good rate controlled. He is taking apixaban for anticoagulation. He gets dyspnea when he goes upstairs but otherwise on plain surface he does not have any symptoms. There is no change in his breathing status. 12/02/2023: He returns for follow-up. He underwent echocardiography in 10/17/2023 which showed normal LV function of 55-60%, mildly increased right ventricular cavity size with xaju-tz-lfnzpjsd RV dysfunction, moderate severe tricuspid valve regurgitation and a moderately elevated right atrial pressure. Normal PA pressures were noted. Severe biatrial enlargement was noted. He is denying any significant change in his symptoms on follow-up. No chest discomfort. No peripheral edema or abdominal distention/signs of right heart failure. 02/12/2024: He is here for follow-up. He was started on amiodarone 200 mg daily on last visit. We discussed about cardioversion on last visit any wanted to discuss this with his family. Returns any saying that he does not want to undergo cardioversion. Heart rate is well controlled on amiodarone and he is on apixaban for anticoagulation. Clinically does not have any symptoms/signs of heart failure currently. [facility] Medical History (Updated 02/12/24 @ 13:08 by Alex Barnes MD) Right inguinal pain On beta azalia at home On anticoagulant therapy Arthritis Low back pain Cholelithiasis Renal cyst, right Neurofibroma Right inguinal hernia GERD (gastroesophageal reflux disease) HLD (hyperlipidemia) Chest pain PAF (paroxysmal atrial fibrillation) Surgical History History of esophagogastroduodenoscopy (EGD) History of right inguinal hernia repair Hx of eye surgery Hx of cataract extraction History of ankle surgery Family History Mother Stroke CVD (cardiovascular disease) Father No problems noted. Social History Are you a primary care connector to a significant other at home: No Do you presently have visiting nurse or other home services: No Alcohol intake: never Patient Tobacco Use Status: Former Tobacco user Tobacco use type: Cigarette Years Smoked: 20+ Second Hand Smoke Exposure: No Current occupational status: retired Current occupation: rt hand Review of Systems Const Denies chills, Denies fatigue, Denies fever(s), Denies frequent falls, Denies weakness, Denies weight gain and Denies weight loss ENT Denies dizziness Card Denies chest pain, Denies leg edema, Denies lightheadedness, Denies palpitations, Denies dyspnea and Denies dyspnea on exertion Resp Denies cough, Denies dyspnea and Denies dyspnea on exertion GI Denies hematochezia Musc Denies abnormal gait, Denies muscle weakness, Denies numbness, Denies radiating pain into limb and Denies tingling Neuro Denies abnormal gait, Denies dizziness, Denies frequent falls, Denies numbness, Denies tingling and Denies weakness Endo Denies fatigue and Denies palpitations Physical Exam Vital Signs: Last Vital Signs Pulse 74 02/12/24 12:45 BP 130/60 02/12/24 12:45 BMI result Body Mass Index 25.0 GENERAL APPEARANCE: in no acute distress, well developed, well nourished. NECK/THYROID: no carotid bruit, no jugular venous distention. SKIN: Neurofibroma. HEART: no murmurs, irregular rate and rhythm, S1, S2 normal. LUNGS: clear to auscultation bilaterally. ABDOMEN: normal, bowel sounds present, soft, nontender, nondistended. EXTREMITIES: no clubbing, cyanosis, or edema. PERIPHERAL PULSES: equal. NEUROLOGIC: nonfocal, alert and oriented. PSYCH: mood/affect full range. Office Procedures EKG Details: Atrial fibrillation 74 beats per minute, rightward axis, incomplete right bundle-branch block, septal infarct, QTC 437 milliseconds. 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 He has permanent atrial fibrillation. LV function has been normal but recent echocardiography showed isan-ma-oqdeumpa RV dysfunction with xldjvqyq-ol-cukjzx tricuspid valve regurgitation. He has biatrial enlargement. We discussed about cardioversion and he wishes to discuss this with his family. We started him on amiodarone 200 mg daily which she has been taking regularly. He is well rate control at this stage. Continue anticoagulation as before. He has decided not to pursue cardioversion. I will continue amiodarone for now to see if he spontaneously converts to sinus rhythm. We will see him back in few months. If he is still in atrial fibrillation then I will start amiodarone and put him back on beta-azalia. He will monitor himself for symptoms/signs of heart failure which I have explained to him in detail. Thank you for allowing me to participate in the care of your patient. Please feel free to contact me if you have any questions. Coding Level of Care Code Est Pt Level 4 (57572) Diagnoses Permanent atrial fibrillation I48.21 Right ventricular dysfunction I51.9 Tricuspid regurgitation I07.1 CPT Codes EKG - CPT: 94272-[id number], Complete ([id number])
== END 2024-02-12 13:14 | disposition home or self-care (01) ==
PROVIDERS: PCP Internal Medicine; Visit Provider Internal Medicine Cardiovascular Disease
DX: I48.21 Permanent atrial fibrillation (principal); I07.1 Rheumatic tricuspid insufficiency
CPT/HCPCS: 93010; 99214

== ENCOUNTER → 2024-02-12 12:14 | Outpatient (BNVA) | payer MEDICARE, OTHER, SELFPAY | PROVIDERS: PCP Internal Medicine; Visit Provider Internal Medicine Cardiovascular Disease | DX: I48.21 Permanent atrial fibrillation (principal); I07.1 Rheumatic tricuspid insufficiency | CPT/HCPCS: 93005; 99212 ==